=== PATIENT | male | born 1960 | race Caucasian/White ===

== ENCOUNTER 2018-04-06 14:00 | Outpatient (RCR) | payer MEDICAID, SELFPAY ==
--- NOTE | 2018-03-01 18:18 | HP.PTEVAL_ITS ---
Patient's Visit Information SIN STANLEY is a 57 year old M referred to Physical Therapy by KIMBERLEY ARAUJO with a diagnosis of Lumbar radiculopathy. Date of Evaluation: 03/01/18 Physical Therapist: Thomas Akins DPT, [place] - Visit Plan Frequency: 3x /Week Duration: 4-6 Weeks Plan: 3x/week for 4-6 weeks as needed for initially a pool based program with possibly a land based exit strategy. Focus on neutral spine position, lumbar flexion stretches, core strength adn general ex progressing to I. No insurance info available today so double check at his first visit. - Subjective Subjective: Has long history of LBP. DM and neuropathy has made it hard to figure out what is causing his problems. He has LBP and B leg pain along with legs giving out. This is bad if he is on his feet too much and goes away if he sits down. He is sleeping OK. He denies incontinence. He has not worked in 3 years due to legs giving out and pain/mental. He lives with his in a trailer and has trouble climbing the steps intermittently. Has no falls. - Pain LBP and legs Pain Intensity (Out of 10): 0 Pain Intensity Range: 0, 10 - Objective Walks slowly and stiff in spine but I. Transitions I to and fro chair and mat. reflexes 2/3 in patella and achilles B. Sensation is diminished to gross light touch in feet B. Strength is 4/5 in LE without myotomal abnormalities. LB aROM ext mod limtied, SB min limited, Flexion mod limited and sagittal movements are painful at end range. Pelvic movement is minimal but patient got neutral spine position in standing fairly well. - Goals Goal 1:: Patient feel 75% better with ambulation and able to do dishes without sitting to rest. Goal 2:: Pt independent with approp HEP/gym/pool ex to minimize future problems. Goal Time Frame: 4-6 Weeks Goal 3:: Pt walk dog 5 x around trailer without difficulty. Goal Time Frame: 4-6 Weeks - Rehabilitation Potential Physical Therapy Diagnosis: LB radiculopathy/stenosis Rehabilitation Potential: Fair - Anticipated Interventions Patient/Client Instruction: Educate patient on: Condition, Plan of Care For the Purpose of:: To decrease pain, To increase tolerance to activity/ condition/position Therapeutic Exercise to Include: Strength training, Postural training, Flexibilty training, Gait and locomotor training, In an aquatic setting, Active ROM, Dynamic Lumbar Stabilization For the Purpose of:: To decrease pain, To increase ROM, To increase tolerance to activity/condition/position, To improve ability of physical actions for home/ community/work/leisure Thank you for the opportunity to evaluate your patient. For Medicare and Medicare HMO plans, please review the plan of care and approve it. It will need to be FAXED BACK to us at [phone] for Medicare purposes. Please let me know if there are questions or concerns regarding this plan of care. Physician Signature: Date:
--- NOTE | 2018-04-06 14:29 | HP.PTDCSUM ---
HP - PT D/C Summary It has been my pleasure to treat SIN STANLEY under orders from KIMBERLEY ARAUJO, for the diagnosis of Lumbar radiculopathy for a total of 10 visit(s). Discharge Date: 04/06/18 Please see the following information for a summary of their discharge status. - Subjective Subjective: Pool was good. Sore alot of the time though. 5/10 mostly in legs and LB. Different than his normal soreness. Achy all the time. Hard to do anything. Feels stronger in core. Pt may continue I at the hotel and will look into it. Been busy adding onto trailer. Had some numbness carrying two by fours this morning. - Pain LBP and legs Pain Intensity (Out of 10): 1 - Overall Improvement % Improvement: 50 - Objective Objective/Function: Limited flex adn ext with pain LB end of ext. SB are without pain. Still very tight upper legs. walks well. OVERALL SLIGHTLY IMPROVED BUT STILL FRUSTRATED WITH PAIN. - Goals Goal 1:: Patient feel 75% better with ambulation and able to do dishes without sitting to rest. Goal Progress: Progressing Goal 2:: Pt independent with approp HEP/gym/pool ex to minimize future problems. Goal Progress: Goal Met Goal 3:: Pt walk dog 5 x around trailer without difficulty. Goal Progress: 1x - Plan Plan: D/C to I pool ex, pt to find community pool and notify doctor about lack of improvement if/when he wishes to f/u - D/C Information Discharge Comments: Pt will continue pool ex in [place] and f/u with doctor when desired for next step(he thinks MRI) If there are questions or concerns regarding this patient's physical therapy, please feel free to call me at [phone]. Thank you for the referral of this patient. Sincerely, Thomas Akins, DPT, [place]
== END 2018-04-06 19:00 | disposition home or self-care (01) ==
LOC: PT 14:00
PROVIDERS: Family Provider Internal Medicine; PCP Internal Medicine
DX: M54.16 Radiculopathy, lumbar region (principal); M99.83 Other biomechanical lesions of lumbar region; M51.36 Other intervertebral disc degeneration, lumbar region
CPT/HCPCS: 97110; 97113; 97162; 97530